=== PATIENT | female | born 1965 | race Caucasian/White ===

== ENCOUNTER 2017-05-19 12:02 | Observation (INO) | payer MEDICARE ==
[~2017-05-19] VITALS: Ht 175.3 cm; Wt 72.7 kg
[~2017-05-19 12:02] MED LIST: CALCIUM 600 +1 EAC3 PO; CENTRUM SILVER1 EAC2 PO; FLEXERIL10 MG PO; Paxil PO; TYLENOL WITH C1 EACH PO; ULTRAM50 MG PO; WELLBUTRIN XL150 MG PO
[2017-05-19 12:42] LABS: HEMATOCRIT 39.5 % (36.0-46.0); MCH 33.8 PG (29.0-34.0); MCHC 34.9 G/DL (30.0-36.0); MCV 96.8 FL (83-99); MEAN PLAT.VOLUME 9.3 uM^3 (9.5-12.4); PLATELET COUNT 294 K/uL (156-360); RBC DIS.WIDTH-CV 11.6 % (11.8-14.6); RBC DIS.WIDTH-SD 41.5 % (39-53); RED BLOOD COUNT 4.08 M/uL (3.80-5.20); WHITE BLOOD COUNT 9.8 K/uL (4.1-10.2)
[2017-05-19 12:50] LABS: D-DIMER ELISA < 150.00 ng/mLDDU (<230)
[2017-05-19 12:51] LABS: CHLORIDE 105 mEq/L (99-109); POTASSIUM 3.9 mEq/L (3.7-5.4); SODIUM 139 mEq/L (136-147)
[2017-05-19 12:53] LABS: GLUCOSE 100 mg/dL (70-99)
[2017-05-19 12:54] LABS: ANION GAP 9 MEQ/L (2-14)
[2017-05-19 12:55] LABS: TOTAL BILIRUBIN 0.4 mg/dL (0.0-1.0)
[2017-05-19 12:56] LABS: ALKALINE PHOSPHATASE 94 IU/L (3-129)
[2017-05-19 12:57] LABS: GFR ESTIMATE (CALCULATED) > 59 mL/min/
[2017-05-19 12:58] LABS: UREA NITROGEN (BUN) 15 mg/dL (9-23)
[2017-05-19 13:00] LABS: LIPASE 32 U/L (1.0-51.0)
[2017-05-19 13:02] LABS: TROP-I INTERPRETATION NEGATIVE; TROPONIN-I < 0.01 ng/mL (0.0-0.30)
[2017-05-19 13:18] LABS: ADD MIUA? YES; BILIRUBIN NEGATIVE; BLOOD NEGATIVE; COLOR YELLOW ((YELLOW)); GLUCOSE (STRIP) NEGATIVE; KETONES NEGATIVE; LEUKOCYTES NEGATIVE; NITRITE NEGATIVE; PROTEIN (STRIP) NEGATIVE; SPECIFIC GRAVITY 1.008 (1.000-1.030); UROBILINOGEN 0.2 MG/DL (0.2-1.0)
[2017-05-19 13:20] LABS: BACTERIA RARE /HPF; EPITHELIAL CELLS 2+ /HPF; MUCUS TRACE /LPF; RED BLOOD CELLS 0-5 /HPF (0-5); UCUL ADDED? NO; WHITE BLOOD CELLS 0-5 /HPF (0-5)
[2017-05-19] MEDS ORDERED: EFFEXOR XR75 MG PO ×2 (16:03→16:05)
[2017-05-19] MEDS ORDERED: ONE-A-DAY ESSE1 EAC1 PO (16:06)
[2017-05-19 16:58] LABS: TROP-I INTERPRETATION NEGATIVE; TROPONIN-I < 0.01 ng/mL (0.0-0.30)
[2017-05-19 17:48] LABS: HDL CHOLESTEROL 46 MG/DL (Desirable>=50); LDL CHOLESTEROL 137 mg/dL (Desirable<100); NON-HDL CHOLESTEROL 154 mg/dL (Desirable<160); TOTAL CHOLESTEROL 200 mg/dL (Desirable<200); TRIGLYCERIDES 83 MG/DL (Normal: <150)
[2017-05-19 21:30] LABS: TROP-I INTERPRETATION NEGATIVE; TROPONIN-I < 0.01 ng/mL (0.0-0.30)
[2017-05-19 22:13] VITALS: BP 95/51
[2017-05-20 04:02] VITALS: BP 116/55
[2017-05-20 05:49] LABS: HEMATOCRIT 36.9 % (36.0-46.0); MCH 33.5 PG (29.0-34.0); MCHC 34.7 G/DL (30.0-36.0); MCV 96.6 FL (83-99); MEAN PLAT.VOLUME 9.6 uM^3 (9.5-12.4); PLATELET COUNT 254 K/uL (156-360); RBC DIS.WIDTH-CV 11.7 % (11.8-14.6); RBC DIS.WIDTH-SD 41.1 % (39-53); RED BLOOD COUNT 3.82 M/uL (3.80-5.20); WHITE BLOOD COUNT 6.6 K/uL (4.1-10.2)
[2017-05-20 06:16] LABS: ANION GAP 6 MEQ/L (2-14); CHLORIDE 109 MEQ/L (99-109); GFR ESTIMATE (CALCULATED) > 59 mL/min/; GLUCOSE 82 mg/dL (70-99); POTASSIUM 3.9 MEQ/L (3.7-5.4); SAMPLE HEMOLYSIS CHECK 0; SAMPLE ICTERIC CHECK 0; SAMPLE LIPEMIA CHECK 0; SODIUM 141 MEQ/L (136-147); UREA NITROGEN (BUN) 11 mg/dL (9-23)
[2017-05-20 07:43] VITALS: BP 108/58
[2017-05-20 12:05] VITALS: BP 121/53
[2017-05-20] MEDS ORDERED: ASPIR-LOW81 MG PO (13:14)
[2017-05-20] MEDS ORDERED: PRAVASTATIN SOD80 MG PO (13:14)
[2017-05-20 13:18] VITALS: BP 99/48
[2017-05-20 13:20] VITALS: BP 121/58
[2017-05-20 13:22] VITALS: BP 112/72
== END 2017-05-20 16:00 | disposition home or self-care (01) ==
LOC: EME 12:02 → EDOF 15:36 → 5WEST 15:36 → EDOF 15:36 → ENRESERV 15:41 → 5WEST 22:03
PROVIDERS: Emergency Medicine; Hospitalist
DX: R07.89 Other chest pain (principal); R55 Syncope and collapse; F17.200 Nicotine dependence, unspecified, uncomplicated; R42 Dizziness and giddiness; R10.9 Unspecified abdominal pain; R11.0 Nausea; Z82.5 Family history of asthma and other chronic lower respiratory diseases; Z80.3 Family history of malignant neoplasm of breast; Z88.5 Allergy status to narcotic agent
CPT/HCPCS: 70551; 71020; 74176; 80048; 80053; 80061; 81003; 83690; 84484; 85027; 85379; 93005; 99281; 99285; G0378; J2270; J2405; J7030; S0028